=== PATIENT | female | born 1945 | race Caucasian/White ===

== ENCOUNTER 2016-08-11 11:46 | Emergency (ER) | payer OTHER ==
[~2016-08-11] VITALS: Ht 147.3 cm; Wt 96.6 kg
[2016-08-11 12:43] LABS: BASOPHIL % 0.2 % (0-2); PLATELET COUNT 191 x10^3mcL (130-400)
[2016-08-11 12:46] LABS: RED CELL DISTRIBUTION WIDTH 14.9 % (11.5-14.5)
[2016-08-11 12:58] LABS: CARBON DIOXIDE 28.5 mmol/L (21-32); CREATININE SERUM 1.5 mg/dL (0.6-1.0); POTASSIUM SERUM 4.2 mmol/L (3.5-5.1)
[2016-08-11 13:03] LABS: BILIRUBIN TOTAL 0.41 mg/dL (0.20-1.00); TOTAL PROTEIN, SERUM 7.3 g/dL (6.4-8.2)
[2016-08-11 13:08] LABS: ALBUMIN 3.1 g/dL (3.4-5.0)
[2016-08-11 16:02] VITALS: BP 141/103
== END 2016-08-11 16:02 | disposition home or self-care (01) ==
LOC: ED 11:46
PROVIDERS: Emergency Medicine
DX: R07.89 Other chest pain (principal); I10 Essential (primary) hypertension; E11.9 Type 2 diabetes mellitus without complications; K21.9 Gastro-esophageal reflux disease without esophagitis
CPT/HCPCS: 83880; Q0092